=== PATIENT | male | born 1980 | race Caucasian/White ===

== ENCOUNTER 2020-04-25 07:04 | Day surgery (SDC) | payer BC, OTHER ==
[~2020-04-25] VITALS: Ht 185.4 cm; Wt 81.6 kg
[~2020-04-25 07:04] MED LIST: ALPR.25; ALPR.25 PO; ASPI325EC; CIPR500 PO; PROACE100 PO
--- NOTE | 2020-04-25 07:22 | NUR ---
History, Chart, Medications and Allergies reviewed before start of procedure. Patient States Post-Procedure ride home has been arranged. Patient confirms NPO status and agrees with scheduled surgery. Pre-Op teaching done. Pt verbalizes understanding.
--- NOTE | 2020-04-25 10:02 | NUR ---
PT TOLERATING ORAL FLUIDS AND A SANDWICH. VSS
--- NOTE | 2020-04-25 10:33 | NUR ---
Patient up to Ambulate independently. Gait steady. Discharge instructions reviewed with patient. Patient verbalizes understanding. Copy given to patient to take home. Discharged via wheelchair to private car for ride home.
== END 2020-04-25 23:05 | disposition home or self-care (01) ==
LOC: ORSCMMR 07:04 → ORD 08:30 → ORSCMMR 23:05
PROVIDERS: Surgery
PROC: 0YU50JZ Supplement Right Inguinal Region with Synthetic Substitute, Open Approach (ICD-10-PCS; principal; 2020-04-25 08:30)
DX: K40.90 Unilateral inguinal hernia, without obstruction or gangrene, not specified as recurrent (principal); F17.210 Nicotine dependence, cigarettes, uncomplicated; K21.9 Gastro-esophageal reflux disease without esophagitis
CPT/HCPCS: A9270-GY; C1781; J0690; J1100; J1885; J2250; J2405; J2704; J3010; J7120

== ENCOUNTER 2020-08-31 07:46 | Emergency (ER) | payer OTHER ==
[~2020-08-31] VITALS: Ht 185.4 cm; Wt 81.7 kg
[2020-08-31] MEDS ORDERED: IBUP400 PO (08:25)
== END 2020-08-31 08:30 | disposition home or self-care (01) ==
LOC: ER 07:46
DX: S60.211A Contusion of right wrist, initial encounter (principal); F17.210 Nicotine dependence, cigarettes, uncomplicated; W22.8XXA Striking against or struck by other objects, initial encounter; Y92.89 Other specified places as the place of occurrence of the external cause; Y99.0 Civilian activity done for income or pay
CPT/HCPCS: 73090; 99283-25

== ENCOUNTER 2021-10-14 08:42 | Emergency (ER) | payer OTHER ==
[~2021-10-14] VITALS: Ht 185.4 cm; Wt 88.9 kg
[~2021-10-14 08:42] MED LIST changes: +IBUP400 PO
[2021-10-14 09:12] LABS: Source, Urine Voided
[2021-10-14 09:16] LABS: Bilirubin, Urine Neg (Neg); Blood, Urine Neg (Neg); Glucose Qualitative, Urine Neg (Neg); Ketones, Urine Neg (Neg); Leukocyte Esterase, Urine Neg (Neg); Nitrite, Urine Neg (Neg); Protein, Urine Neg (Neg); Specific Gravity, Urine 1.005 (1.003-1.022); Urobilinogen, Urine NORM (Normal)
[2021-10-14 09:17] LABS: Appearance, Urine Clear (Clear); Color, Urine Yellow (P-Yellow)
[2021-10-14] MEDS ORDERED: Robaxin750 MG PO (10:00)
[2021-10-14] MEDS ORDERED: IBUP800 PO (10:00)
== END 2021-10-14 10:20 | disposition home or self-care (01) ==
LOC: ER 08:42
PROVIDERS: Emergency Medicine
DX: S39.012A Strain of muscle, fascia and tendon of lower back, initial encounter (principal); F17.200 Nicotine dependence, unspecified, uncomplicated; X58.XXXA Exposure to other specified factors, initial encounter
CPT/HCPCS: 81003; 99284